=== PATIENT | female | born 1995 | race Caucasian/White ===

== ENCOUNTER 2017-09-18 16:49 | Emergency (ER) | payer OTHER ==
[2017-09-18 16:49] VITALS: BMI 21.2
[2017-09-18 16:55] VITALS: PULSE 98; TEMP 97.9; O2SAT 100
[2017-09-18 17:18] VITALS: BP 145/103
--- NOTE | 2017-09-18 17:44 | C.PDOC ---
History Of Present Illness 22 year old female sent to Emergency Department from OBGYN office for evaluation of elevated blood pressure. Patient has never been diagnosed with hypertension in the past. She is unsure about family history. She admits to having coffee this morning and fried food for lunch. Otherwise, denies chest pain, shortness of breath, headache, dizziness, lightheadedness, weakness, numbness, fever, or chills. No active physical complaints at this time. Time Seen by Provider: 09/18/17 17:03 Chief Complaint (Nursing): High Blood Pressure History Per: Patient History/Exam Limitations: no limitations Onset/Duration Of Symptoms: Hrs Current Symptoms Are (Timing): Still Present Associated Symptoms: denies: Chest Pain, Dyspnea, Dizziness, Blurred Vision, Focal Weakness, Headache Quality Of Symptoms: Asymptomatic Severity: None Pain Scale Rating Of: 0 Recent travel outside of the [place]: No Additional History Per: Patient Past Medical History Reviewed: Historical Data, Nursing Documentation, Vital Signs Vital Signs: Last Vital Signs Temp 97.9 F 09/18/17 16:52 Pulse 98 H 09/18/17 17:05 Resp 18 09/18/17 18:00 BP 145/103 H 09/18/17 17:05 Pulse Ox 100 09/18/17 18:00 Family History: States: Unknown Family Hx - Social History Hx Tobacco Use: No Hx Alcohol Use: Yes Hx Substance Use: No - Immunization History Hx Tetanus Toxoid Vaccination: Yes Hx Influenza Vaccination: Yes Hx Pneumococcal Vaccination: No Review Of Systems Except As Marked, All Systems Reviewed And Found Negative. Constitutional: Negative for: Fever, Chills Cardiovascular: Negative for: Chest Pain, Palpitations, Light Headedness Respiratory: Negative for: Cough, Shortness of Breath Gastrointestinal: Negative for: Nausea, Vomiting, Abdominal Pain Neurological: Negative for: Weakness, Numbness, Headache, Dizziness Physical Exam - Physical Exam Appears: Non-toxic, No Acute Distress, Other (anxious) Skin: Normal Color, Warm, Dry Head: Atraumatic, Normacephalic Eye(s): bilateral: Normal Inspection Nose: Normal Oral Mucosa: Moist Neck: Normal ROM, Supple Chest: Symmetrical Cardiovascular: Rhythm Regular, No Murmur Respiratory: Normal Breath Sounds, No Rales, No Rhonchi, No Wheezing Gastrointestinal/Abdominal: Soft, No Tenderness Extremity: Bilateral: Atraumatic, Normal ROM Neurological/Psych: Oriented x3, Normal Speech ED Course And Treatment O2 Sat by Pulse Oximetry: 100 (RA) Pulse Ox Interpretation: Normal Medical Decision Making Medical Decision Making: Blood pressure checked by me 135/90. She is alert and oriented in no distress. No complaints. Patient was reassured. Instructed about diet, and decreasing caffeine intake. Disposition Counseled Patient/Family Regarding: Diagnosis, Need For Followup - Disposition Referrals: [facility] [Outside] Disposition: HOME/ ROUTINE Disposition Time: 17:44 Condition: STABLE Additional Instructions: It is important that you follow up with your primary doctor Follow dietary recommendations to help with HTN Instructions: Chronic Hypertension (ED), DASH Eating Plan (DC) Forms: [employer] (Vietnamese) - POA Present On Arrival: None - Clinical Impression Clinical Impression: Single episode of hypertension - PA / FUR CUTTER / Resident Statement MD/DO has reviewed & agrees with the documentation as recorded. - Scribe Statement The provider has reviewed the documentation as recorded by the Scribe Savage Avery All medical record entries made by the Scribe were at my direction and personally dictated by me. I have reviewed the chart and agree that the record accurately reflects my personal performance of the history, physical exam, medical decision making, and the department course for this patient. I have also personally directed, reviewed, and agree with the discharge instructions and disposition.
[2017-09-18 18:30] VITALS: RESP 18
== END 2017-09-18 18:29 | disposition home or self-care (01) ==
LOC: C.ER 16:49
DX: I10 Essential (primary) hypertension (principal)